=== PATIENT | female | born 1970 | race Caucasian/White ===

== ENCOUNTER 2017-10-19 11:15 | Outpatient (RCR) | payer BC ==
[~2017-10-19 11:15] MED LIST: LEXAPRO 10MG10 MG PO; LISINOPRIL20 MG PO; METOPROLOL25 MG PO; SPIRONOLACTONE25 MG PO
== END 2017-10-23 13:12 | disposition home or self-care (01) ==
LOC: WSPT 11:15
DX: M54.5 Low back pain (principal)

== ENCOUNTER 2019-09-02 13:09 | Emergency (ER) | payer BC ==
[~2019-09-02] VITALS: Ht 154.9 cm; Wt 75.0 kg
[2019-09-02 13:19] VITALS: BP 157/74; TEMP 98.3
[2019-09-02 14:21] LABS: COLLECTION METHOD CLEAN CATCH
[2019-09-02 14:25] LABS: HEMATOCRIT 42.7 % (37.0-47.0); HEMOGLOBIN 14.7 g/dl (12.5-16.0); MEAN CELL VOLUME 98 fl (80.0-100.0); MEAN CORPUSCULAR HEMOGLOBIN 34 pg (27.0-31.0); MEAN CORPUSCULAR HGB CONC 34 g/dl (33.0-37.0); MEAN PLATELET VOLUME 9.6 fl (7.4-10.4); PLATELET COUNT 335 K/mm3 (130-400); RED BLOOD COUNT 4.37 M/mm3 (4.10-5.30); REDCELL DISTRIBUTION WIDTH-CV 13.1 % (11.5-14.5)
[2019-09-02 14:46] LABS: URINE APPEARANCE Clear; URINE COLOR Colorless
[2019-09-02 14:47] LABS: PH 6 (5-8); URINE BILIRUBIN Negative (NEGATIVE); URINE BLOOD 1+ (NEGATIVE); URINE GLUCOSE Negative (NEGATIVE); URINE KETONE Negative (NEGATIVE); URINE LEUKOCYTE ESTERASE Negative (NEGATIVE); URINE NITRATE Negative (NEGATIVE); URINE PROTEIN(semi-quant) 1+ (NEGATIVE); URINE UROBILINOGEN Negative (NEGATIVE)
[2019-09-02 14:48] LABS: ALANINE AMINOTRANSFERASE 120 U/L (9-52); ALKALINE PHOSPHATASE 77 U/L (50-136); ANION GAP 15 mmol/L (7-16); AST,SGOT 64 U/L (15-37); BILIRUBIN,TOTAL 0.6 mg/dL (0.0-1.0); BLOOD UREA NITROGEN 13 mg/dL (7-17); CALCIUM 9.8 mg/dL (8.4-10.2); CARBON DIOXIDE 25 mmol/L (22-30); CHLORIDE 91 mmol/L (98-107); CREATININE, serum 0.56 (0.52-1.25); GLUCOSE 94 mg/dL (74-106); SODIUM 131 mmol/L (137-145); TOTAL PROTEIN 8.8 gm/dL (6.4-8.2); URINE RBC 0-2 /hpf
[2019-09-02 14:54] LABS: C-REACTIVE PROTEIN < 0.5 mg/dL (0.0-0.9)
[2019-09-02 14:55] LABS: BAND 5 % (0-10); LYMPHOCYTE 21 % (20.0-51.0); MYELOCYTE 2 % (0-0); NEUTROPHILS 71 % (42.0-75.2)
[2019-09-02 14:56] LABS: PLATELET ESTIMATE NORMAL (NORMAL)
[2019-09-02] MEDS ORDERED: VALIUM 5MG T5 MG/TAB PO (15:43)
[2019-09-02 15:58] VITALS: PULSE 85
[2019-09-02] MEDS ORDERED: ULTRAM 50MG TAB50 MG PO (16:03)
[2019-09-02] MEDS ORDERED: FLEXERIL5 MG PO (16:04)
[2019-09-02] MEDS ORDERED: COZAAR 25MG25 MG/TAB PO (16:05)
== END 2019-09-02 15:58 | disposition home or self-care (01) ==
LOC: COL.ER 13:09
PROVIDERS: Family Medicine
DX: M54.16 Radiculopathy, lumbar region (principal); I10 Essential (primary) hypertension